=== PATIENT | female | born 1960 ===

== ENCOUNTER 2016-09-14 11:57 | Emergency (ER) | payer BC ==
--- NOTE | 2016-09-14 12:41 | UC ---
Skin Complaint HPI - HPI Summary HPI Summary: 55 y/o female presents to the urgent care c/o diffuse rash in different parts of her body for the past 6 weeks. Pt reports she was exposed to a chemical at work and her PCP Rx a medication, she can't recall the name. Then, the rash developed after a very hot day. She has applied coconut oil, the rash has resolved, but this is the 3rd time it appears again. Now it is in her arms, thighs, back and part of her chest. Pt denies itchiness, SOB, chest pain, N/V/D , BOURGEOIS. Pt has not other complains. - History of Current Complaint Chief Complaint: UCRash Time Seen by Provider: 09/14/16 12:17 Stated Complaint: RASH Hx Obtained From: Patient ?: No Onset/Duration: Gradual Onset, Lasting Weeks, Still Present Skin Exposure Onset/Duration: Weeks Ago Timing: Constant Onset Severity: Mild Current Severity: Moderate Pain Intensity: 0 Pain Scale Used: 0-10 Numeric Location: Diffuse - B/L arms, B/L thighs, back and part of chest Character: Exposure to Heat Intermittent, Hives, Redness Aggravating: Humidity Alleviating: OTC Creams/Salves Associated Signs & Symptoms: Negative: Nausea, Vomiting, Difficulty Breathing, Fever, Chills, Hoarseness, Throat Tightening, Abdominal Pain Related History: Possible Reaction to: Environmental Exposure - Allergy/Home Medications Allergies/Adverse Reactions: Allergies Allergy/AdvReac Type Severity Reaction Status Date / Time No Known Allergies Allergy Verified 09/14/16 12:16 Review of Systems Constitutional: Negative Skin: Rash Eyes: Negative ENT: Negative Respiratory: Negative Cardiovascular: Negative Gastrointestinal: Negative Genitourinary: Negative Motor: Negative Neurovascular: Negative Musculoskeletal: Negative Neurological: Negative Psychological: Negative All Other Systems Reviewed And Are Negative: Yes PMH/Surg Hx/FS Hx/Imm Hx Previously Healthy: Yes - Surgical History Surgical History: Yes Surgery Procedure, Year, and Place: fibroid removed - Family History Known Family History: Positive: Hypertension, Diabetes Family History: Strokes, Leukemia - Social History Occupation: Employed Full-time Lives: With Family Alcohol Use: None Substance Use Type: Marijuana Smoking Status (MU): Never Smoked Tobacco Physical Exam Triage Information Reviewed: Yes Appearance: Well-Appearing, No Pain Distress, Well-Nourished, Obese Vital Signs: Initial Vital Signs Temp 97.9 F 09/14/16 12:11 Pulse 71 09/14/16 12:11 Resp 18 09/14/16 12:11 BP 104/58 09/14/16 12:11 Pulse Ox 98 09/14/16 12:11 Vital Signs Reviewed: Yes Eye Exam: Normal Eyes: Positive: Conjunctiva Clear - PERRLA, EOMI, fundi grossly normal ENT Exam: Normal ENT: Positive: Normal ENT inspection, Hearing grossly normal, Pharynx normal, TMs normal Dental Exam: Normal Neck exam: Normal Neck: Positive: Supple, Nontender, No Lymphadenopathy Respiratory Exam: Normal Respiratory: Positive: Chest non-tender, Lungs clear, Normal breath sounds Cardiovascular Exam: Normal Cardiovascular: Positive: RRR, No Murmur, Pulses Normal Abdominal Exam: Normal Abdomen Description: Positive: Nontender, No Organomegaly, Soft. Negative: CVA Tenderness (R), CVA Tenderness (L) Bowel Sounds: Positive: Present Musculoskeletal Exam: Normal Musculoskeletal: Positive: Strength Intact, ROM Intact, No Edema Neurological Exam: Normal Psychological Exam: Normal Skin: Positive: rashes - Diffuse maculopapular erythematous eruption in both thighs, arms, back and superior part of the chest. Non tender to palpation. Dryness w/ signs of scoriation observed from presvious resolved skin eruption Course/Dx - Course Course Of Treatment: 55 y/o female presents to the urgent care c/o diffuse rash in different parts of her body for the past 6 weeks. Pt reports she was exposed to a chemical at work and her PCP Rx a medication, she can't recall the name. Then, the rash developed after a very hot day. She has applied coconut oil, the rash has resolved, but this is the 3rd time it appears again. Now it is in her arms, thighs, back and part of her chest. Pt denies itchiness, SOB, chest pain, N/V/D, BOURGEOIS. Hx obtained. PE abnormal findings:Diffuse maculopapular erythematous eruption in both thighs, arms, back and superior part of the chest. Non tender to palpation. Dryness w/ signs of scoriation observed from presvious resolved skin eruption. Probably a heat rash or a drug reaction rash ? Pt Rx Prednisone PO taper dose, Benadryl PO and hidrocortisone cream. Advised to f/u with her PCP or a Partner Management Consultant for further managemnt and r/o what is the cause of her persistent rash. Pt understood and agreed. - Differential Diagnoses - Skin Complaint Differential Diagnoses: Allergic Reaction, Cellulitis, Contact Dermatitis, Drug Rash, Eczema, Urticaria - Diagnoses Provider Diagnoses: 1-Unspecified rash Discharge - Discharge Plan Condition: Stable Disposition: HOME Prescriptions: Hydrocortisone 1% CREAM* [Hytone Cream 1%*] 1 applic TOPICAL BID #1 tube diPHENhydraMINE PO* [Benadryl PO 25 MG TAB*] 25 mg PO Q6H PRN #20 tab PRN Reason: Rash predniSONE TAB* [Deltasone TAB*] 20 mg PO DAILY #11 tab Patient Education Materials: Acute Rash (ED) Referrals: [facility] [place] [facility] [Outside] Additional Instructions: please take medications as instructed to alleviate symptoms. Please f/u with your PCP or snack bar cook in [facility] in 1 week if rash is not improving for further evaluation and treatment.
== END 2016-09-14 12:50 | disposition home or self-care (01) ==
LOC: UCEAST 11:57
DX: R21 Rash and other nonspecific skin eruption (principal)
CPT/HCPCS: 99202; G0463